=== PATIENT | female | born 2005 | race Caucasian/White ===

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

== ENCOUNTER → 2024-05-17 14:02 | Outpatient (REF) | payer OTHER, SELFPAY | LOC: HWRAD 14:02 | PROVIDERS: ATTENDING PHYSICIAN Internal Medicine Pulmonary Disease; FAMILY PHYSICIAN Internal Medicine | DX: J45.909 Unspecified asthma, uncomplicated (principal); G47.33 Obstructive sleep apnea (adult) (pediatric) | CPT/HCPCS: 71046 ==

== ENCOUNTER 2024-09-03 14:30 | Emergency (ER) | payer OTHER, SELFPAY ==
[2024-09-03 14:32] VITALS: BP 112/73
[2024-09-03 14:56] LABS: % Basophils 0.4 % (0-2); % Eosinophils 0.2 % (0-6); % Immature Granulocytes 0.2 % (0-0.5); % Lymphocytes 7.4 % (20.5-51.1); % Monocytes 5.1 % (1.7-9.3); % Neutrophils 86.7 % (42.2-75.2); Absolute Lymphocytes 0.8 10^3/uL (1.2-3.4); Absolute Monocytes 0.5 10^3/uL (0.1-0.6); Absolute Neutrophils 9.1 10^3/uL (1.4-6.5); Hematocrit 41.6 % (37.0-47.0); Hemoglobin 14.5 g/dL (12.0-16.0); Mean Corp Hgb Conc. 34.9 g/dL (33.0-37.0); Mean Platelet Volume 9.3 fL (7.4-10.4); Nucleated Red Blood Cells % 0 %; Platelet Count 247 10^3/uL (130-400); Red Blood Cell Count 4.84 10^6/uL (4.20-5.40); Red Cell Dist. Width 13.3 % (11.5-14.5); White Blood Cell Count 10.5 10^3/uL (4.8-10.8)
[2024-09-03] MEDS: OMNIPAQUE 50 ML PO (15:01)
[2024-09-03 15:10] LABS: HCG, Serum Qualitative Screen Negative
[2024-09-03 15:11] LABS: ALT (SGPT) 26 U/L (0-35); AST (SGOT) 27 U/L (14-36); Albumin 4.2 g/dl (3.5-5.0); Alkaline Phosphatase 70 U/L (38-126); Blood Urea Nitrogen 12 mg/dl (7-17); Calcium 9.2 mg/dl (8.4-10.2); Carbon Dioxide 23 mmol/L (22-30); Chloride 107 mmol/L (98-107); Glucose 119 mg/dl (70-99); Lipase 62 U/L (23-300); Potassium 4.1 mmol/L (3.5-5.1); Sodium 140 mmol/L (135-145); Total Bilirubin 0.9 mg/dl (0.2-1.3); Total Protein 7.2 g/dl (6.3-8.2); eGFR > 60.00
[2024-09-03] MEDS: ZOFRAN 4 MG IV (18:44)
[2024-09-03] MEDS: NSS 1000 IV (18:45)
[2024-09-03] MEDS: TORADOL 15 MG IV (18:45)
[2024-09-03 18:51] VITALS: BMI 36.8
[2024-09-03 18:57] LABS: Urine Albumin 2+ (Neg - Trace); Urine Bilirubin Negative (Negative); Urine Character Clear (Clear); Urine Color Yellow; Urine Glucose Negative (Negative); Urine Ketone Negative (Negative); Urine Leukocyte Negative (Negative); Urine Nitrite Negative (Negative); Urine Occult Blood 1+ (Negative); Urine Urobilinogen Negative (Neg - 1+)
[2024-09-03 19:00] VITALS: BP 118/50
--- NOTE | 2024-09-03 19:12 | ED.GENMED ---
History of Present Illness
General
Chief Complaint: Abdominal Symptoms
Source: patient and family
Exam Limitations: none
Time Seen by Provider: 09/03/24 18:29
Nursing documentation reviewed up to this point in time: agreed with
History of Present Illness
History of Present Illness:
Patient is a 18-year-old female presenting to the emergency department for evaluation of lower abdominal pain associated with nausea, vomiting, and diarrhea. Symptoms began this morning acutely around 1 AM which she describes started with pain in
her lower abdomen associated with multiple episodes of vomiting and nonbloody diarrhea. She does feel that pain is worse in the right lower abdomen. Symptoms persisted throughout the night and into this morning. Patient reports significant amount
of diarrhea and feels she may be dehydrated. Patient last vomited just before noon.
Patient denies any known fever. No associated urinary symptoms occluding dysuria or hematuria. No abnormal vaginal bleeding or discharge.
Patient does state that she ate ice cream and a cheese steak last night prior to bed. She also reports that she had a wrap from [employer] yesterday and the chicken tasted 'funky '. She has no known sick contacts
Review of Systems
Review of Systems
Allergies reviewed?: Yes
All Other Systems: ROS reviewed and negative except as documented in HPI and ROS
Phy Exam
Physical Exam
Physical Exam:
Vitals: Tachycardic on arrival although improved by my assessment. Afebrile
General: Patient is well appearing, no acute distress
Skin: Warm and dry, no rashes or lesions
Head: Normocephalic, atraumatic
Eyes: Sclera nonicteric. EOMs intact. No nystagmus.
Throat: Protecting airway
Neck: Normal ROM, no cervical spine tenderness, no meningismus
Cardiac: Regular rate and rhythm, no murmurs.
Pulm: Normal respiratory effort, no wheezes, rales, rhonchi heard on exam.
Abdomen: Abdomen soft. Mild diffuse tenderness in lower abdomen without rebound tenderness or guarding. No focal tenderness to McBurney's point. No CVA tenderness.
Extremities: No evidence of cyanosis or edema. Palpable DP pulses bilaterally
Neuro: AAOx3. Grossly intact.
Psychiatric: Normal affect.
Course
Orders/Labs/Results
Orders:
Orders
09/03/24 14:34
Test Result ONCE
09/03/24 14:37
Complete Blood Count/With Diff Urgent
Comprehensive Metabolic Panel Urgent
HCG, Serum Qualitative Screen Urgent
Lipase Urgent
09/03/24 14:51
Pelvis (Non Obstetric) US [US Pelvis Only (non-obstetric)] Urgent
Comment:
Reason For Exam: right lower quad pain
09/03/24 14:57
Iohexol [Omnipaque] 50 ml .ROUTE .STK-MED ONE
09/03/24 15:01
Iohexol [Omnipaque] See Protocol PO NOW STA
09/03/24 17:45
Iohexol [Omnipaque] See Protocol PO NOW STA
09/03/24 17:46
CT Abd/pel W Iv And Oral Contr Urgent
Comment:
Reason For Exam: RLQ pain, c/f appendicitis
09/03/24 18:39
0.9% Sodium Chloride 1000 ml [Nss] 1,000 ml IV BOLUS
Ketorolac [Toradol] 15 mg IV NOW STA
Ondansetron Injectable [Zofran] 4 mg IV NOW STA
09/03/24 18:48
Urinalysis Reflex To Culture Urgent
Date Specimen was Collected: 09/03/24
Time Specimen was Collected: 18:46
Urine Microscopic Reflex Cult Urgent
Abnormal Lab Results
09/03/24 09/03/24
14:37 18:48
Absolute Neuts (auto) 9.1 H 10^3/uL
(1.4-6.5)
Absolute Lymphs (auto) 0.8 L 10^3/uL
(1.2-3.4)
Neutrophils % 86.7 H %
(42.2-75.2)
Lymphocytes % 7.4 L %
(20.5-51.1)
Glucose 119 H mg/dl
(70-99)
Ur Occult Blood Reflex 1+ A
(Negative)
Urine Albumin (Reflex) 2+ A
(Neg - Trace)
09/03/24 14:37
09/03/24 14:37
Vital Signs
Pulse: 68
Blood pressure: 111/60
Initial and Last Documented VS:
Initial Vital Signs
Temp Pulse Resp BP Pulse Ox
98.4 F 118 16 112/73 98
09/03/24 14:32 09/03/24 14:32 09/03/24 14:32 09/03/24 14:32 09/03/24 14:32
Last Documented Vital Signs
Temp Pulse Resp BP Pulse Ox
98.4 F 68 16 111/60 99
09/03/24 14:32 09/03/24 20:28 09/03/24 14:32 09/03/24 20:28 09/03/24 20:00
MDM/Problems Addressed
Differential Diagnosis Includes:
Not limited to: Viral gastroenteritis, colitis, appendicitis, ovarian torsion, ovarian cyst, etc.
MDM/Problems Addressed:
18 year old female with acute onset lower abdominal pain associated with profuse nausea,vomiting, and diarrhea since 1AM. No fevers or urinary symptoms. No known sick contacts. Screening labs were sent in triage without any clinically significant
abnormalities. HCG negative. A pelvis US was obtained in triage which showed no acute pelvic etiology although findings suspicious for possible appendicitis. Patient was sent for a CT abdomen/pelvis w/ PO and IV contrast prior to my assessment.
By my assessment - CT report pending. Patient appears well and nontoxic. Abdomen is soft with diffuse tenderness in lower abdomen w/o focal tenderness at McBurneys point. Will check UA ans treat symptoms with IV toradol, zofran and IVF. Will await
CT report.
Update: CT report without acute findings. Appendix normal. On reassessment patient appears very well. Her symptoms have improved following toradol and zofran. Abdomen remains soft with minimal tenderness in lower abdomen. She has had normal
laboratory analysis and negative imaging. Low suspicion for acute intra-abdominal infection. Likely gastroenteritis. Stable for discharge home with supportive care and PCP f/u. Patient and patients mom comfortable with plan.
Chronic conditions affecting care:
N/A
Acute Exacerbation and/or Progression of Chronic Illness:
N/A
*Radiology
Radiology exam reviewed: preliminary read by ED provider and radiology read reviewed (Pelvic ultrasound without evidence of ovarian torsion; CT abdomen without acute abnormalities including normal appendix)
*Pulse Oximetry
Patient hypoxic: no
*EKG
Interpreted by ED Provider?: NA
*Vacuum Pan Operator Interpretation
Rate: Vacuum Pan Operator- N/A
*Critical Care Note
Total Time (30-74mins, 75-104mins- exclusive of procedures): Not Applicable
ED Attending Note
-
Portions of this chart may have been created with voice recognition software.� Occasional wrong word or��sound alike� substitutions may have occurred due to the inherent limitations of voice recognition software.
Discharge Plan
Departure
Patient Disposition: Home (Routine Discharge)
Date of Disposition: 09/03/24
Time of Disposition: 20:28
Patient with high blood pressure during this ER visit?: No
Condition: Good
Covid-19: Not Applicable
Discharge Problem:
Abdominal pain, Nausea vomiting and diarrhea
Instructions: Dehydration, Adult (DC), Nausea and Vomiting, Adult (DC), Abdominal Pain
Prescriptions:
New
ondansetron 4 mg tablet,disintegrating
4 mg PO Q8H PRN (Reason: nausea and vomiting) Qty: 5 0RF
No Action
drospirenone-ethinyl estradiol 3-0.02 mg tablet
1 tab PO HS
levofloxacin 500 mg tablet
500 mg PO DAILY 9 Days Qty: 9 0RF
prochlorperazine maleate [Compazine] 5 mg tablet
5 mg PO BID PRN (Reason: nausea and vomiting) Qty: 7 0RF
Referrals:
Darci Rocha MD [Family Provider] - Follow up in 2-3 days
Activity Restrictions/Additional Instructions:
Return to the emergency department with any high fevers, worsening/persistent abdominal pain, intractable nausea/vomiting, persistent lack of appetite, signs of severe dehydration, worsening in current symptoms, or any other concerns
- As discussed�your lab work and imaging showed no acute abnormalities in the emergency department. You were given IV fluids, IV, and IV Zofran.
- Is important stay well-hydrated. You can take Tylenol and/or Motrin as needed for pain. A prescription for Zofran has been sent to your pharmacy you can take up to every 8 hours as needed for persistent nausea/vomiting.
- I recommend a bland diet over the next few days and slowly advance as tolerated.
- Follow-up with primary care for further evaluation/management to ensure that symptoms are improving
Monitor your symptoms closely return to the emergency department with any acute worsening/new symptoms or any other concerns
Interventions
Interventions:
*Risk Screen - Suicide Last Done: 09/03/24 14:34
*General Assessment Last Done: 09/03/24 18:30
*Neglect/Abuse Screening Last Done: 09/03/24 14:34
*ED- Fall Risk Assessment Last Done: 09/03/24 18:30
*ED COVID-19 Vaccine History Last Done: 09/03/24 18:30
*Nursing Disposition Last Done: 09/03/24 20:42
IK-Zbqmou-Ooafvjadeo Assessment Last Done: 09/03/24 18:30
Discharge Date and Time
Discharge Date/Time: 09/03/24 20:43
Print Language: ARMENIAN
[2024-09-03 19:30] LABS: Urine Squamous Cell >30 /LPF (Few)
[2024-09-03 19:31] LABS: Urine Red Blood Cell 0-2 /HPF (0-2); Urine White Cell 0-2 /HPF (0-5)
[2024-09-03 20:00] VITALS: BP 97/76
== END 2024-09-03 20:43 | disposition home or self-care (01) ==
LOC: EMR 14:30
PROVIDERS: Emergency Medicine; Physician Assistant; EMERGENCY PHYSICIAN Emergency Medicine; FAMILY PHYSICIAN Family Medicine
DX: R10.30 Lower abdominal pain, unspecified (principal); R11.2 Nausea with vomiting, unspecified; R19.7 Diarrhea, unspecified
CPT/HCPCS: 99284; 96374; 96375; 96361; 74177; 76856; 80053; 81003; 81015; 83690; 84703; 85025; Q9967

== ENCOUNTER → 2025-01-31 12:58 | Outpatient (REF) | payer OTHER, SELFPAY | LOC: HWRAD 12:58 | PROVIDERS: ATTENDING PHYSICIAN Internal Medicine | DX: N92.0 Excessive and frequent menstruation with regular cycle (principal) | CPT/HCPCS: 76830; 76856 ==